=== PATIENT | male | born 1975 | race Caucasian/White ===

== ENCOUNTER 2018-08-25 14:16 | Emergency (ER) | payer OTHER ==
[~2018-08-25] VITALS: Wt 111.4 kg
[2018-08-25 15:14] VITALS: BP 135/76; PULSE 97; RESP 20
--- NOTE | 2018-08-25 20:11 | ERD ---
ER Documentation Chief Complaint Chief Complaint R eye swelling/ redness since Sun; no discharge. vision WNL ROS All systems reviewed and are negative except as per history of present illness. Medications Home Meds No Active Prescriptions or Reported Meds Allergies Allergies: Coded Allergies: No Known Allergy (Unverified , 02/13/12) PMhx/Soc History of Surgery: Yes (CRANIOTOMY, LT HIP SURGERY ) Anesthesia Reaction: No Hx Neurological Disorder: No Hx Respiratory Disorders: No Hx Cardiac Disorders: No Hx Psychiatric Problems: No Hx Miscellaneous Medical Probl: No Hx Alcohol Use: No Hx Substance Use: No Hx Tobacco Use: No Smoking Status: Former smoker Physical Exam Vitals Vital Signs Date Temp Pulse Resp B/P (MAP) Pulse Ox O2 O2 Flow FiO2 Time Delivery Rate 08/25/18 99.3 97 20 135/76 95 15:14 (95) Physical Exam Const: No acute distress Head: Atraumatic Eyes: Normal Conjunctiva ENT: Normal External Ears, Nose and Mouth. Neck: Full range of motion. No meningismus. Resp: Clear to auscultation bilaterally Cardio: Regular rate and rhythm, no murmurs Abd: Soft, non tender, non distended. Normal bowel sounds Skin: No petechiae or rashes Back: No midline or flank tenderness Ext: No cyanosis, or edema Neur: Awake and alert Psych: Normal Mood and Affect Departure Diagnosis: Primary Impression: Hordeolum Hordeolum type: unspecified type Laterality: unspecified laterality Qualified Codes: H00.019 - Hordeolum externum unspecified eye, unspecified eyelid Condition: Fair Patient Instructions: When Your Child Has a Stye Referrals: [facility] YOU HAVE RECEIVED A MEDICAL SCREENING EXAM AND THE RESULTS INDICATE THAT YOU DO NOT HAVE A CONDITION THAT REQUIRES URGENT TREATMENT IN THE EMERGENCY DEPARTMENT. FURTHER EVALUATION AND TREATMENT OF YOUR CONDITION CAN WAIT UNTIL YOU ARE SEEN IN YOUR DOCTORS OFFICE WITHIN THE NEXT 1-2 DAYS. IT IS YOUR RESPONSIBILITY TO MAKE AN APPOINTMENT FOR FOLOW-UP CARE. IF YOU HAVE A PRIMARY DOCTOR --you should call your primary doctor and schedule an appointment IF YOU DO NOT HAVE A PRIMARY DOCTOR YOU CAN CALL OUR PHYSICIAN REFERRAL HOTLINE AT IF YOU CAN NOT AFFORD TO SEE A PHYSICIAN YOU CAN CHOSE FROM THE FOLLOWING [facility] [address] [facility]. [facility] [address] [facility]. [facility] [address] [facility] [address] [facility] [address] [facility]. [facility] [address] [facility]. [facility] Hours: Mon - Fri 9:00 AM - 5:00 PM Additional Instructions: Call your primary care doctor TOMORROW for an appointment during the next 1-2 days.See the doctor sooner or return here if your condition worsens before your appointment time. Llame al doctor MAANA y ayah svetlana TRAV PARA DENTRO DE 1-2 MARTINEZ.Dgale a la s ecretaria que nosotros le instruimos hacer esta trav.Avise o llame si bishop condicin se empeora antes de la trav. Regresa aqui si peor o no mejor. Recommend warm compresses for 15 minutes 4 times daily. if no improvement, follow up with ophthalmology ANGELICA SOTO DO Aug 25, 2018 20:11
== END 2018-08-25 21:06 | disposition left against medical advice (07) ==
LOC: FTE 14:16
DX: H00.013 Hordeolum externum right eye, unspecified eyelid (principal); Z87.891 Personal history of nicotine dependence
CPT/HCPCS: 99282